=== PATIENT | male | born 2005 | race Hispanic/Latino ===

== ENCOUNTER 2024-04-04 22:26 | Emergency (ER) | payer SELFPAY ==
[2024-04-04] MEDS ORDERED: dexAMETHasone 10 MG/ML VIAL ONE (22:51)
[2024-04-04] MEDS ORDERED: KETOROLAC 30 MG/ML INJ ONE (22:52)
[2024-04-04] MEDS ORDERED: CYCLOBENZAPRINE 10 MG TAB ONE (22:52)
--- NOTE | 2024-04-04 23:58 | ER ---
Nurse's Notes [facility] Name: Brady Patton Age: 18 yrs Sex: Male : 2005 Arrival Date: 04/04/2024 Time: 22:26 Bed 18 Private MD: Diagnosis: Strain of muscle, fascia and tendon of lower back Presentation: 04/04 22:40 Chief complaint: EMS states: reports back pain after doing some lifting at work. ha1 Coronavirus screen: Vaccine status: Patient reports being unvaccinated. Ebola Screen: No symptoms or risks identified at this time. Initial Sepsis Screen: Does the patient meet any 2 criteria? No. Patient's initial sepsis screen is negative. Does the patient have a suspected source of infection? No. Patient's initial sepsis screen is negative. Risk Assessment: Do you want to hurt yourself or someone else? Patient reports no desire to harm self or others. Onset of symptoms was April 04, 2024. 22:40 Method Of Arrival: [facility]: [facility] ha1 22:40 Acuity: VINICIUS 4 ha1 Triage Assessment: 22:29 General: Appears uncomfortable, Behavior is calm, cooperative. Pain: Complains of pain ha1 in back Pain does not radiate. Pain currently is 9 out of 10 on a pain scale. Quality of pain is described as sharp, throbbing. Neuro: Level of Consciousness is awake, alert, obeys commands, Oriented to person, place, time, situation. Cardiovascular: Capillary refill < 3 seconds Patient's skin is warm and dry. Respiratory: Airway is patent Respiratory effort is even, unlabored, Respiratory pattern is regular, symmetrical. GI: Abdomen is round non-distended. Derm: Skin is pink, warm \T\ dry. Musculoskeletal: Circulation, motion, and sensation intact. Range of motion: intact in all extremities. Musculoskeletal: Reports pain in back. Historical: - Allergies: 22:46 No Known Allergies; ha1 - PMHx: 22:46 None; ha1 - Immunization history:: Adult Immunizations up to date. - Infectious Disease History:: Denies. - Social history:: Smoking status: Patient denies any tobacco usage or history of. Screenin:[address] [facility] ED Fall Risk Assessment (Adult) History of falling in the last 3 months, ha1 including since admission No falls in past 3 months (0 pts) Confusion or Disorientation No (0 pts) Intoxicated or Sedated No (0 pts) Impaired Gait No (0 pts) Mobility Assist Device Used No (0 pt) Altered Elimination No (0 pt) Score/Fall Risk Level 0 - 2 = Low Risk Oriented to surroundings, Maintained a safe environment, Educated pt \T\ family on fall prevention, incl call for assistance when getting out of bed, Hourly rounding (assess needs \T\ fall precautionary measures) done. Abuse screen: Denies threats or abuse. Denies injuries from another. Nutritional screening: No deficits noted. Tuberculosis screening: No symptoms or risk factors identified. Assessment: 22:29 Reassessment: see triage assessment. ha1 23:40 Reassessment: Patient and/or family updated on plan of care and expected duration. Pain ha1 level reassessed. Patient is alert, oriented x 3, equal unlabored respirations, skin warm/dry/pink. Patient states feeling better. Patient states symptoms have improved. 04/05 00:19 Reassessment: Patient and/or family updated on plan of care and expected duration. Pain ha1 level reassessed. Patient is alert, oriented x 3, equal unlabored respirations, skin warm/dry/pink. pain 3/10 Patient states feeling better. Patient states symptoms have improved. Vital Signs: 04/04 22:40 BP 125 / 66; Pulse 81; Resp 19; Temp 97.9(T); Pulse Ox 96% on R/A; Weight 104.33 kg; ha1 23:00 BP 123 / 65; Pulse 89; Resp 17 S; Pulse Ox 100% on R/A; ha1 23:40 BP 124 / 66; Pulse 88; Resp 17 S; Pulse Ox 99% on R/A; ha1 04/05 00:28 BP 137 / 73; Pulse 90; Resp 16 S; Temp 97.9; Pulse Ox 99% on R/A; ha1 ED Course: 04/04 22:29 Patient arrived in ED. lg3 22:29 Patient has correct armband on for positive identification. Bed in low position. Call ha1 light in reach. Side rails up X 1. Adult w/ patient. 22:29 Arm band placed on right wrist. ha1 22:30 [facility] sb4 22:30 Trip Scott MD is Attending Physician. sb4 22:40 Rosi Verma, RN is Primary Nurse. ha1 22:46 Triage completed. ha1 23:07 CT Lumbar Spine Wo Con In Process Unspecified. EDMS 04/05 00:00 Provided Education on: medication administration . ha1 00:15 No provider procedures requiring assistance completed. ha1 00:15 Patient did not have IV access during this emergency room visit. ha1 Administered Medications: 04/04 23:00 Drug: Ketorolac IM 30 mg IM once Route: IM; Site: right deltoid; ha1 23:40 Follow up: Response: No adverse reaction; Marked relief of symptoms; Pain is decreased ha1 23:00 Drug: Cyclobenzaprine PO 10 mg PO once Route: PO; ha1 23:40 Follow up: Response: No adverse reaction; Marked relief of symptoms ha1 23:00 Drug: Dexamethasone IM 10 mg IM once Route: IM; Site: right deltoid; ha1 23:40 Follow up: Response: No adverse reaction; Marked relief of symptoms ha1 Medication: 23:00 VIS not applicable for this client. ha1 Outcome: 23:57 Discharge ordered by . sb4 04/05 00:15 Discharged to home via wheelchair, with family, ha1 Condition: stable Discharge instructions given to patient, family, Instructed on discharge instructions, follow up and referral plans. medication usage, Demonstrated understanding of instructions, follow-up care, medications, Prescriptions given X 3, 00:20 Patient left the ED. ha1 Signatures: Dispatcher [employer] EDID Genny Wood RN RN lg3 Rosi Verma RN RN ha1 Alice Simpson, PARomero PARomero sb4 Corrections: (The following items were deleted from the chart) 00:28 00:26 Reassessment: Patient and/or family updated on plan of care and expected ha1 duration. Pain level reassessed. Patient is alert, oriented x 3, equal unlabored respirations, skin warm/dry/pink. pain 3/10 Patient states feeling better. Patient states symptoms have improved. ha1 00:29 04/04 23:40 BP 124 / 66; Pulse 75bpm; Resp 17bpm; Spontaneous; Pulse Ox 97% RA; ha1 ha1
--- NOTE | 2024-04-04 23:58 | EDPHYS ---
Physician Documentation [facility] Name: Brady Patton Age: 18 yrs Sex: Male : 2005 Arrival Date: 04/04/2024 Time: 22:26 Bed 18 Private MD: ED Physician Trip Scott HPI: 04/04 22:36 This 18 yrs old Male presents to ER via Unassigned with complaints of Low Back Pain. sb4 22:36 The patient presents with pain that is acute, and decreased range of motion. The sb4 symptoms are located in the left low back. The pain radiates to the left leg. The problem was sustained when lifting heavy object. Onset: The symptoms/episode began/occurred today. Modifying factors: The patient symptoms are alleviated by rest, the patient symptoms are aggravated by any movement. Historical: - Allergies: 22:46 No Known Allergies; ha1 - PMHx: 22:46 None; ha1 - Immunization history:: Adult Immunizations up to date. - Infectious Disease History:: Denies. - Social history:: Smoking status: Patient denies any tobacco usage or history of. ROS: 22:40 Constitutional: Negative for fever, chills, and weight loss, sb4 22:40 Back: Positive for decreased range of motion, pain at rest, pain with movement, radiated pain, 22:40 All other systems are negative, Exam: 22:40 Constitutional: This is a well developed, well nourished patient who is awake, alert, sb4 and in no acute distress. Head/Face: Normocephalic, atraumatic. Eyes: Extra-ocular motions intact. Periorbital areas with no swelling, redness, or edema. ENT: Mucous membranes moist. 22:40 Back: pain, that is moderate, of the left low back, ROM is painful, decreased, normal spinal alignment noted, CVA tenderness, is absent, muscle spasm, is not present, Straight leg raises: pain bilaterally, 22:40 Neuro: Sensation: is normal, no obvious gross deficits, Vital Signs: 22:40 BP 125 / 66; Pulse 81; Resp 19; Temp 97.9(T); Pulse Ox 96% on R/A; Weight 104.33 kg; ha1 23:00 BP 123 / 65; Pulse 89; Resp 17 S; Pulse Ox 100% on R/A; ha1 23:40 BP 124 / 66; Pulse 88; Resp 17 S; Pulse Ox 99% on R/A; ha1 04/05 00:28 BP 137 / 73; Pulse 90; Resp 16 S; Temp 97.9; Pulse Ox 99% on R/A; ha1 MDM: 04/04 22:30 Patient medically screened. sb4 23:57 Data reviewed: vital signs, nurses notes, radiologic studies, and as a result, I will sb4 discharge patient. Counseling: I had a detailed discussion with the patient and/or guardian regarding the historical points, exam findings, and any diagnostic results supporting the discharge/admit diagnosis, radiology results, to return to the emergency department if symptoms worsen or persist or if there are any questions or concerns that arise at home. 04/04 22:34 Order name: CT Lumbar Spine Wo Con sb4 Administered Medications: 23:00 Drug: Ketorolac IM 30 mg IM once Route: IM; Site: right deltoid; ha1 23:40 Follow up: Response: No adverse reaction; Marked relief of symptoms; Pain is decreased ha1 23:00 Drug: Cyclobenzaprine PO 10 mg PO once Route: PO; ha1 23:40 Follow up: Response: No adverse reaction; Marked relief of symptoms ha1 23:00 Drug: Dexamethasone IM 10 mg IM once Route: IM; Site: right deltoid; ha1 23:40 Follow up: Response: No adverse reaction; Marked relief of symptoms ha1 Disposition: 04/05 03:36 Co-signature as Attending Physician, Trip Scott MD I agree with the assessment sp4 and plan of care. I reviewed the patient's care provided by the Advanced Practice Provider and agree with the diagnosis and treatment plan. Disposition Summary: 04/04/24 23:57 Discharge Ordered Notes: Location: Home sb4 Problem: new sb4 Symptoms: have improved sb4 Condition: Stable sb4 Diagnosis - Strain of muscle, fascia and tendon of lower back sb4 Followup: sb4 - With: Private Physician - When: As needed - Reason: Recheck today's complaints, Re-evaluation by your physician Discharge Instructions: - Discharge Summary Sheet sb4 - Acute Back Pain, Adult sb4 - Low Back Sprain or Strain Rehab sb4 Forms: - Work release form sb4 - Patient Portal Instructions sb4 - Leadership Thank You Letter sb4 Prescriptions: - Cyclobenzaprine 10 mg Oral Tablet - take 1 tablet ORAL route every 8 hours As needed; 30 tablet; Refills: 0, sb4 Product Selection Permitted - Diclofenac Sodium 75 mg Oral Tablet Sustained Release - take 1 tablet ORAL route 2 times per day; 30 tablet; Refills: 0, Product sb4 Selection Permitted - Medrol (Surendra) 4 mg Oral Tablets, Dose Pack - take 1 tablet ORAL route as directed - follow package instructions; 1 packet; sb4 Refills: 0, Product Selection Permitted Signatures: Dispatcher [employer] Rosi Turner RN RN ha1 Alice Simpson, ALONZO PARomero sb4 Trip Scott MD MD sp4
[2024-04-05 00:40] VITALS: BP 125/66; TEMP 97.9; O2SAT 96
--- NOTE | 2024-04-05 13:42 | RAD REPORT ---
EXAM DESCRIPTION: CT - Spine Lumbar Wo Con - 04/05/2024 6:47 am CLINICAL HISTORY: 8-year-old male. PAIN. Bed Name: 18 COMPARISON: No relevant imaging study available. TECHNIQUE: Axial CT images of the lumbar spine were performed using dose reduction techniques includ ing automated exposure control and/or adjustment of the mA and/or kV according to patient size, and/o r iterative reconstruction techniques. No IV contrast administered. Images were reformatted into the coronal and sagittal planes. FINDINGS: No fracture, subluxation, destructive osseous lesion, disc extrusion. No central canal o r neural foraminal stenosis. No paravertebral soft tissue swelling. IMPRESSION: 1. No significant abnormality. 2. No fracture, subluxation, or disc extrusion. Electronically signed by: Sherif Russell MD 04/04/2024 11:31 PM CDT Due to temporary technical issues with the PACS/Fluency reporting system, reports are being signed by the in house radiologist without review as a courtesy to ensure prompt reporting. The interpreting r adiologist is fully responsible for the content of the report.
== END 2024-04-05 00:20 | disposition home or self-care (01) ==
LOC: ER 22:26
DX: S39.012A Strain of muscle, fascia and tendon of lower back, initial encounter (principal)
CPT/HCPCS: 72131; 96372; 99284; J1100